=== PATIENT | female | born 1970 | race African-American/Black ===

== ENCOUNTER 2018-06-04 13:58 | Observation (INO) ==
[2018-06-04] MEDS ORDERED: PHENERGAN INJ 25 MG IM PRN (15:05)
[2018-06-04] MEDS ORDERED: HumuLIN R SUBCUT PRN (15:05)
[2018-06-04 15:33] LABS: BASOPHILS % (AUTO) 0.8 % (0.2-1.0); EOSINOPHILS # (AUTO) 0.2 x10^3/uL (0.0-0.2); EOSINOPHILS % (AUTO) 3.5 % (0.9-2.9); HEMATOCRIT 30.4 % (36.0-47.0); HEMOGLOBIN 10.4 g/dL (12.0-16.0); LYMPHOCYTES # (AUTO) 2.2 X10^3/uL (1.3-2.9); LYMPHOCYTES % (AUTO) 42.1 % (21.0-51.0); MEAN CORPUSCULAR HEMOGLOBIN 28.3 pg (27.0-34.0); MEAN CORPUSCULAR HGB CONC 34.3 g/dL (33.0-35.0); MEAN CORPUSCULAR VOLUME 82.5 fL (80.0-100.0); MEAN PLATELET VOLUME 9.7 fL (7.4-11.0); MONOCYTES # (AUTO) 0.3 x10^3/uL (0.3-0.8); MONOCYTES % (AUTO) 5.9 % (0.0-13.0); NEUTROPHILS # (AUTO) 2.5 x10^3/uL (2.2-4.8); NEUTROPHILS % (AUTO) 47.7 % (42.0-75.0); PLATELET COUNT 203 X10^3/uL (150.0-450.0); RED BLOOD COUNT 3.68 X10^6/uL (3.5-5.4); RED CELL DISTRIBUTION WIDTH 14.7 % (11.6-16.5); WHITE BLOOD COUNT 5.3 X10^3/uL (3.6-10.0)
[2018-06-04 15:45] LABS: ALANINE AMINOTRANSFERASE 61 Units/L (12-78); ALBUMIN 3.8 g/dL (3.4-5.0); ALKALINE PHOSPHATASE 131 Units/L (46-116); AMYLASE 128 Units/L (25-115); ASPARTATE AMINO TRANSFERASE 48 Units/L (15-37); BLOOD UREA NITROGEN 31 mg/dL (7-18); CALCIUM 8.7 mg/dL (8.5-10.1); CARBON DIOXIDE 25.5 mmol/L (21-32); CHLORIDE 104 mmol/L (98-107); COR NA(FOR HYPERGLY) 140 mmol/L (136-145); CREATININE 2.11 mg/dL (0.55-1.02); LIPASE 292 Units/L (73-393); SODIUM 139 mmol/L (136-145); TOTAL PROTEIN 7.1 g/dL (6.4-8.2); eGFR NON BLACK RACES 27 (>60)
[2018-06-04] MEDS: DILAUDID INJ IVP PRN ×2 (16:15→22:09)
[2018-06-04] MEDS: ZOFRAN INJ 4 MG VIAL IVP PRN ×2 (16:15→22:09)
[2018-06-04] MEDS: NS 1000 ML 1,000 ML IV SCH (16:15)
[2018-06-04] MEDS: PEPCID 20 MG IV PREMIX* 20 MG/50 ML BAG IV PRN (16:15)
--- NOTE | 2018-06-04 16:27 | RAD ---
ACUTE ABDOMINAL SERIES CLINICAL HISTORY: 47-year-old female with abdominal pain. COMPARISON: None. FINDINGS: AP chest radiograph demonstrates normal cardiopericardial silhouette. There is no focal consolidation, pleural effusion or pneumothorax. Pulmonary vascularity is normal. Abdominal radiographs demonstrate a nonobstructive bowel gas pattern. Gas and stool are seen throughout the colon. There is no small bowel distention. There is no radiographic evidence of pneumoperitoneum. Imaged osseous structures are intact. Soft tissues are unremarkable. IMPRESSION: 1. No acute cardiopulmonary process. 2. Nonobstructive bowel gas pattern without radiographic evidence of pneumoperitoneum. Reported By:
[2018-06-04 17:48] LABS: CKMB % 1.7 % (<4); CREATINE KINASE 59 Units/L (26-192); CREATINE KINASE MB < 1.0 ng/mL (0-4.0); TROPONIN I < 0.02 ng/mL (0-1.5)
[2018-06-04] MEDS: KAYEXALATE SUSP PO SCH ×2 (18:12→20:44)
[2018-06-04 20:36] LABS: BILIRUBIN,URINE NEGATIVE (NEGATIVE); BLOOD/HEMOGLOBIN,URINE 2+ (NEGATIVE); GLUCOSE, URINE NEGATIVE (NEGATIVE); KETONES,URINE NEGATIVE (NEGATIVE); LEUKOCYTE ESTERASE ,URINE 1+ (NEGATIVE); NITRITES,URINE NEGATIVE (NEGATIVE); PROTEIN,URINE 2+ (NEGATIVE); UROBILINOGEN,URINE NORMAL (NORMAL)
[2018-06-04 20:41] LABS: APPEARANCE,URINE SLIGHTLY HAZY (CLEAR); COLOR,URINE DARK YELLOW (YELLOW)
[2018-06-04 20:42] LABS: AMORPHOUS SEDIMENT,UR 1+ /HPF (NEGATIVE); BACTERIA,URINE TRACE /HPF (NEGATIVE); SQUAMOUS EPITHELIAL CELL,UR MODERATE /HPF (NEGATIVE)
[2018-06-05 00:16] LABS: CKMB % 2.3 % (<4); CREATINE KINASE 43 Units/L (26-192); CREATINE KINASE MB < 1.0 ng/mL (0-4.0); TROPONIN I < 0.02 ng/mL (0-1.5)
[2018-06-05] MEDS: NS 1000 ML 1,000 ML IV SCH ×3 (02:04→14:37)
[2018-06-05 05:58] LABS: BASOPHILS # (AUTO) 0.1 X10^3/uL (0.0-0.1); BASOPHILS % (AUTO) 0.9 % (0.2-1.0); EOSINOPHILS # (AUTO) 0.2 x10^3/uL (0.0-0.2); EOSINOPHILS % (AUTO) 3.5 % (0.9-2.9); HEMATOCRIT 28.5 % (36.0-47.0); HEMOGLOBIN 9.8 g/dL (12.0-16.0); LYMPHOCYTES # (AUTO) 2.2 X10^3/uL (1.3-2.9); LYMPHOCYTES % (AUTO) 35.4 % (21.0-51.0); MEAN CORPUSCULAR HEMOGLOBIN 28.6 pg (27.0-34.0); MEAN CORPUSCULAR HGB CONC 34.3 g/dL (33.0-35.0); MEAN CORPUSCULAR VOLUME 83.2 fL (80.0-100.0); MEAN PLATELET VOLUME 9.3 fL (7.4-11.0); MONOCYTES # (AUTO) 0.4 x10^3/uL (0.3-0.8); MONOCYTES % (AUTO) 5.9 % (0.0-13.0); NEUTROPHILS # (AUTO) 3.3 x10^3/uL (2.2-4.8); NEUTROPHILS % (AUTO) 54.3 % (42.0-75.0); PLATELET COUNT 178 X10^3/uL (150.0-450.0); RED BLOOD COUNT 3.43 X10^6/uL (3.5-5.4); RED CELL DISTRIBUTION WIDTH 14.7 % (11.6-16.5); WHITE BLOOD COUNT 6.1 X10^3/uL (3.6-10.0)
[2018-06-05 06:27] LABS: ALANINE AMINOTRANSFERASE 77 Units/L (12-78); ALBUMIN 3.2 g/dL (3.4-5.0); ALKALINE PHOSPHATASE 117 Units/L (46-116); ASPARTATE AMINO TRANSFERASE 56 Units/L (15-37); BLOOD UREA NITROGEN 31 mg/dL (7-18); CALCIUM 8.2 mg/dL (8.5-10.1); CARBON DIOXIDE 26.4 mmol/L (21-32); CHLORIDE 108 mmol/L (98-107); COR CA(FOR HYPOALB) 8.8 mg/dL (8.5-10.1); CREATINE KINASE 49 Units/L (26-192); CREATINE KINASE MB < 1.0 ng/mL (0-4.0); CREATININE 1.87 mg/dL (0.55-1.02); SODIUM 142 mmol/L (136-145); TOTAL PROTEIN 6.1 g/dL (6.4-8.2); TROPONIN I 0.03 ng/mL (0-1.5); eGFR NON BLACK RACES 31 (>60)
[2018-06-05 08:08] VITALS: BMI 17.9
[2018-06-05] MEDS ORDERED: APRESOLINE INJ 20 MG VIAL IVP ONE (08:28)
--- NOTE | 2018-06-05 09:40 | PCM.PROG ---
Progress Note - Progress Note for Day of Date of Exam: 06/05/18 - Subjective Subjective: 47 BF ADMITTED ONE DAY AGO WITH GASTROPARESIS, DEHYDRATION. PT HYPERKALEMIA ON ADMISSION. PT RECEIVED KAYEXALATE. PT K+5 THIS AM. PT DENIES ANY N/V. PT ADVANCED DIET THIS AM. REPEAT AM LABS, ENCOURAGE PO HYDRATION - Past Medical Family Social History Past Med/Fam/Surg Hx: No changes since H&P Allergies: Allergies morphine Allergy (Verified 06/04/18 14:37) - Review of Systems ROS: No change since H&P - Vital Signs and I&O's Vital Signs: Temperature 97.6 F Pulse Rate [Left Brachial] 95 Pulse Rate [Right Brachial] 72 Respiratory Rate 18 Blood Pressure [Left Arm] 175/111 Blood Pressure [Right Arm] 108/74 O2 Sat by Pulse Oximetry 98 Intake and Output: Intake & Output 06/02/18 06/03/18 06/04/18 06/05/18 11:59 11:59 11:59 11:59 Intake Total 1450 / 1450 Balance 1450 / 1450 - Physical Exam Oriented: Normal Eyes: Normal Ear: Normal Nose: Injected Respiratory: Normal Cardiovascular: Normal : Normal Auscultation: Bowel Sounds: Normal Tenderness: Epigastric, Mild Skin: Normal Musculoskeletal: Normal Psychiatric: Normal Mood Description: Calm Speech Pattern: Clear, Appropriate - Laboratory and Diagnostics Result Diagrams: 06/05/18 05:26 06/05/18 05:26 Labs: Laboratory WBC 6.1 X10^3/uL (3.6-10.0) 06/05/18 05:26 RBC 3.43 X10^6/uL (3.5-5.4) L 06/05/18 05:26 Hgb 9.8 g/dL (12.0-16.0) L 06/05/18 05:26 Hct 28.5 % (36.0-47.0) L 06/05/18 05:26 MCV 83.2 fL (80.0-100.0) 06/05/18 05:26 MCH 28.6 pg (27.0-34.0) 06/05/18 05: MCHC 34.3 g/dL (33.0-35.0) 06/05/18 05:26 RDW 14.7 % (11.6-16.5) 06/05/18 05:26 Plt Count 178 X10^3/uL (150.0-450.0) 06/05/18 05:26 MPV 9.3 fL (7.4-11.0) 06/05/18 05:26 Neut % (Auto) 54.3 % (42.0-75.0) 06/05/18 05:26 Lymph % (Auto) 35.4 % (21.0-51.0) 06/05/18 05:26 [place] % (Auto) 5.9 % (0.0-13.0) 06/05/18 05:26 Eos % (Auto) 3.5 % (0.9-2.9) H 06/05/18 05:26 Baso % (Auto) 0.9 % (0.2-1.0) 06/05/18 05:26 Neut # (Auto) 3.3 x10^3/uL (2.2-4.8) 06/05/18 05:26 Lymph # (Auto) 2.2 X10^3/uL (1.3-2.9) 06/05/18 05:26 [place] # (Auto) 0.4 x10^3/uL (0.3-0.8) 06/05/18 05:26 Eos # (Auto) 0.2 x10^3/uL (0.0-0.2) 06/05/18 05:26 Baso # (Auto) 0.1 X10^3/uL (0.0-0.1) 06/05/18 05:26 Absolute Nucleated RBC 0.0 /100WBC 06/05/18 05:26 Sodium 142 mmol/L (136-145) 06/05/18 05:26 Corrected Sodium TNP 06/05/18 05:26 Potassium 5.0 mmol/L (3.5-5.1) 06/05/18 05:26 Chloride 108 mmol/L (98-107) H 06/05/18 05:26 Carbon Dioxide 26.4 mmol/L (21-32) 06/05/18 05:26 BUN 31 mg/dL (7-18) H 06/05/18 05:26 Creatinine 1.87 mg/dL (0.55-1.02) H 06/05/18 05:26 Est GFR (MDRD) Af Amer 37 (>60) L 06/05/18 05:26 Est GFR (MDRD) Non-Af 31 (>60) L 06/05/18 05:26 Glucose 100 mg/dL (65-99) H 06/05/18 05:26 POC Glucose (mg/dL) 105 mg/dL (65-99) H 06/05/18 05:39 Calcium 8.2 mg/dL (8.5-10.1) L 06/05/18 05:26 Corrected Calcium 8.8 mg/dL (8.5-10.1) 06/05/18 05:26 Total Bilirubin 0.20 mg/dL (0.2-1.0) 06/05/18 05:26 AST 56 Units/L (15-37) H 06/05/18 05:26 ALT 77 Units/L (12-78) 06/05/18 05:26 Alkaline Phosphatase 117 Units/L (46-116) H 06/05/18 05:26 Creatine Kinase 49 Units/L (26-192) 06/05/18 05:26 CK-MB (CK-2) < 1.0 ng/mL (0-4.0) 06/05/18 05:26 CK/CKMB % Calc 2.0 % (<4) 06/05/18 05:26 Troponin I 0.03 ng/mL (0-1.5) 06/05/18 05:26 Total Protein 6.1 g/dL (6.4-8.2) L 06/05/18 05:26 Albumin 3.2 g/dL (3.4-5.0) L 06/05/18 05:26 Globulin 2.9 g/dL (2.5-4.5) 06/05/18 05:26 Albumin/Globulin Ratio 1.1 Ratio (1.1-2.1) 06/05/18 05:26 Amylase 128 Units/L (25-115) H 06/04/18 15:23 Lipase 292 Units/L (73-393) 06/04/18 15:23 Specimen Type Clean catch urine 06/04/18 20:26 Urine Color Dark yellow (YELLOW) 06/04/18 20:26 Urine Appearance Slightly hazy (CLEAR) 06/04/18 20:26 Urine pH 5.0 (5.0 - 8.0) 06/04/18 20: Ur Specific [place] 1.020 (1.000-1.030) 06/04/18 20: Urine Protein 2+ (NEGATIVE) 06/04/18 20: Urine Glucose (UA) Negative (NEGATIVE) 06/04/18 20: Urine Ketones Negative (NEGATIVE) 06/04/18: Urine Occult Blood 2+ (NEGATIVE) 06/04/18: Urine Nitrite Negative (NEGATIVE) 06/04/18 20: Urine Bilirubin Negative (NEGATIVE) 06/04/18 20: Urine Urobilinogen Normal (NORMAL) 06/04/18 20: Ur Leukocyte Esterase 1+ (NEGATIVE) 06/04/18: Urine RBC 5-10 /HPF (NONE SEEN) 06/04/18 20: Urine WBC 0-2 /HPF (NONE SEEN) 06/04/18 20: Ur Squamous Epith Cells Moderate /HPF (NEGATIVE) 06/04/18: Amorphous Sediment 1+ /HPF (NEGATIVE) 06/04/18 20: Urine Bacteria Trace /HPF (NEGATIVE) 06/04/18 20: Ur Culture Indicated? No/not indicated 06/04/18 20: - Plan (1) Hyperkalemia Status: Acute Plan: CE, EKG ON ADMISSION. GENTLE IV HYDRATION. BS CONTROL. SSI, TELEMETRY (2) Dehydration Status: Acute (3) Acute renal failure Status: Acute (4) Diabetes Status: Acute (5) Gastroparesis Status: Acute
[2018-06-05] MEDS: PEPCID 20 MG IV PREMIX* 20 MG/50 ML BAG IV PRN (11:47)
[2018-06-05] MEDS: DILAUDID INJ IVP PRN ×2 (11:47→17:46)
--- NOTE | 2018-06-05 13:31 | DR.H&P ---
H&P - History & Physical for Day of: H&P Date: 06/04/18 - Chief Complaint Chief Complaint: Nausea and vomiting, abd pain - History of Present Illness History of Present Illness: The patient is a 47-year-old black female who presents for follow up of multiple medical problems. The patient states that their BP at home has been stable. The patient presents without BP diary. The patient's BP in the office today is noted to be 109/92. The patient denies OCAMPO, dizziness, CP, or SOB. The patient states that blood sugars at home have been stable. The patient presents without blood sugar diary. The patient's blood sugar in the office today is noted to be 146. Most recent hemoglobin A1C, performed on 04/30/18 noted to be 7.4. The patient denies any open or non-healing wounds. Patient complains of hurting all over vomiting/nausea. Patient rates pain at 10/10 on a 0 to 10 pain scale. patient reports she has not eaten anything for 3 days. States she has increased abdominal pain and would like to be put in the hospital. Patient is tolerating all medications without any problems or side effects. Denies any further complaints at present. - Past Medical History Past Medical History: Diabetes Additional Medical History: Gastroparesis - Past Surgical History Surgical History: Appendectomy, Cholecystectomy, Hysterectomy - Family History Family Medical History: Cancer - Social History Does patient currently use any type of tobacco product: No (quit 20 years ago) Have you used tobacco products in the last 12 months: No Type of Tobacco Use: None Does any household member use tobacco: No Alcohol Use: None Drug Use: None - Medications Home Medications: morphine Allergy (Verified 06/04/18 14:37) CONTINUE taking the following medications acetaminophen-codeine 1 tab PO TID 06/04/18 [History] gabapentin 300 mg PO BID PRN 06/04/18 [History] hydrochlorothiazide 25 mg PO DAILY 06/04/18 [History] insulin aspart U-100 [Novolog U-100 Insulin aspart] 4 - 16 units SUBCUT PRN PRN 06/04/18 [History] insulin glargine [Lantus U-100 Insulin] 10 units SUBCUT DAILY 06/04/18 [History] meloxicam 15 mg PO DAILY 06/04/18 [History] metoclopramide HCl 10 mg PO QACHS 06/04/18 [History] ondansetron 4 mg PO Q4H 06/04/18 [History] pantoprazole 40 mg PO QDAY 06/04/18 [History] pregabalin [Lyrica] 75 mg PO BID 06/04/18 [History] promethazine 25 mg PO Q4-6H PRN 06/04/18 [History] simvastatin 10 mg PO HS 06/04/18 [History] - Review of Systems Constitutional: Malaise Eyes: No Symptoms Reported ENT: No Symptoms Reported Respiratory: No Symptoms Reported Cardiovascular: No Symptoms Reported Gastrointestinal: Nausea, Vomiting, Abdominal Pain Genitourinary: No Symptoms Reported Musculoskeletal: No Symptoms Reported Skin: No Symptoms Reported Neurological: No Symptoms Reported - Physical Exam Vital Signs: Temperature 98.1 F Pulse Rate [Left Brachial] 93 Pulse Rate [Right Brachial] 72 Respiratory Rate 16 Blood Pressure [Left Arm] 135/83 Blood Pressure [Right Arm] 108/74 O2 Sat by Pulse Oximetry 100 Oriented: Normal Eyes: Normal Ear: Normal Nose: Normal Throat: Normal Respiratory: Clear Throughout Cardiovascular: Normal : Normal Auscultation: Bowel Sounds: Normal Palpation: Normal Tenderness: Diffuse Skin: Decreased [place] Musculoskeletal: Normal Psychiatric: Normal Mood Description: Calm Affect: Normal Speech Pattern: Clear - Assessment/Plan (1) Dehydration Status: Acute Plan: Labs, IV antibiotics (2) Diabetes Status: Acute Plan: Monitor BS. Insulin as needed (3) Gastroparesis Status: Acute Plan: IV Hydration, Monitor BS, Antiemetics as needed - Allergies Allergies/Adverse Reactions: Allergies Allergy/AdvReac Type Severity Reaction Status Date / Time morphine Allergy Verified 06/04/18 14:37
[2018-06-06] MEDS: DILAUDID INJ IVP PRN ×2 (00:49→08:47)
[2018-06-06] MEDS: NS 1000 ML 1,000 ML IV SCH ×2 (00:50→03:17)
[2018-06-06 05:20] LABS: BASOPHILS % (AUTO) 0.7 % (0.2-1.0); EOSINOPHILS # (AUTO) 0.3 x10^3/uL (0.0-0.2); EOSINOPHILS % (AUTO) 3.8 % (0.9-2.9); HEMATOCRIT 29.3 % (36.0-47.0); HEMOGLOBIN 9.9 g/dL (12.0-16.0); LYMPHOCYTES # (AUTO) 2.2 X10^3/uL (1.3-2.9); LYMPHOCYTES % (AUTO) 31.4 % (21.0-51.0); MEAN CORPUSCULAR HEMOGLOBIN 28.2 pg (27.0-34.0); MEAN CORPUSCULAR HGB CONC 33.9 g/dL (33.0-35.0); MEAN CORPUSCULAR VOLUME 83.3 fL (80.0-100.0); MEAN PLATELET VOLUME 9.9 fL (7.4-11.0); MONOCYTES # (AUTO) 0.4 x10^3/uL (0.3-0.8); MONOCYTES % (AUTO) 5.5 % (0.0-13.0); NEUTROPHILS # (AUTO) 4.1 x10^3/uL (2.2-4.8); NEUTROPHILS % (AUTO) 58.6 % (42.0-75.0); PLATELET COUNT 174 X10^3/uL (150.0-450.0); RED BLOOD COUNT 3.51 X10^6/uL (3.5-5.4); RED CELL DISTRIBUTION WIDTH 14.4 % (11.6-16.5); WHITE BLOOD COUNT 6.9 X10^3/uL (3.6-10.0)
[2018-06-06 05:30] LABS: ALANINE AMINOTRANSFERASE 62 Units/L (12-78); ALBUMIN 3.4 g/dL (3.4-5.0); ALKALINE PHOSPHATASE 124 Units/L (46-116); ASPARTATE AMINO TRANSFERASE 34 Units/L (15-37); BLOOD UREA NITROGEN 21 mg/dL (7-18); CALCIUM 8.4 mg/dL (8.5-10.1); CARBON DIOXIDE 24.6 mmol/L (21-32); CHLORIDE 106 mmol/L (98-107); COR NA(FOR HYPERGLY) 141 mmol/L (136-145); SODIUM 140 mmol/L (136-145); TOTAL PROTEIN 6.4 g/dL (6.4-8.2); eGFR NON BLACK RACES 40 (>60)
[2018-06-06] MEDS ORDERED: BUTT CREAM (COMPOUND) TOP PRN (08:32)
[2018-06-06] MEDS ORDERED: BUTT CREAM (COMPOUND) ONE (08:34)
[2018-06-06 12:42] VITALS: BP 121/85
== END 2018-06-06 16:55 | disposition home or self-care (01) ==
LOC: MED/SURG
PROVIDERS: ADMIT Internal Medicine; ATTEND Internal Medicine
DX: R26.89 Other abnormalities of gait and mobility; E87.5 Hyperkalemia; R94.4 Abnormal results of kidney function studies; Z79.899 Other long term (current) drug therapy; K31.84 Gastroparesis; I10 Essential (primary) hypertension; E11.43 Type 2 diabetes mellitus with diabetic autonomic (poly)neuropathy; E11.65 Type 2 diabetes mellitus with hyperglycemia; R11.2 Nausea with vomiting, unspecified; R94.31 Abnormal electrocardiogram [ECG] [EKG]; Z79.4 Long term (current) use of insulin; E86.0 Dehydration; K21.9 Gastro-esophageal reflux disease without esophagitis; R10.84 Generalized abdominal pain
CPT/HCPCS: 36415; 74022; 80053; 81001; 82150; 82550; 82553; 83690; 84484; 85025; 93005; 96367; 96372; 96374; 97110; 97161; 97166; A4216; A4222; S0028; G0378; J1170; J1815; J2405; J7030